=== PATIENT | female | born 1960 | race Caucasian/White ===

== ENCOUNTER → 2016-12-02 | Outpatient (CLI) | payer OTHER ==
[~2016-12-02] MED LIST: ATOR10TA PO; ATOR20TA9 PO; CARV6.2512 PO; CLOP75TA PO; FLUT1AER INH; ISOS30TA8 PO; LISI-167 PO; LISI40TA PO; METO-93 PO; METO25TA91 PO; NITR0.4T8 SL; RANI150T8 PO; TIOT18CA INH
== END | disposition home or self-care (01) ==
LOC: CFH 10:46
PROVIDERS: ATTEND Internal Medicine Critical Care Medicine
DX: R91.1 Solitary pulmonary nodule (principal); J44.9 Chronic obstructive pulmonary disease, unspecified; J98.4 Other disorders of lung; I25.10 Atherosclerotic heart disease of native coronary artery without angina pectoris
CPT/HCPCS: 71250